=== PATIENT | female | born 1950 | race Caucasian/White ===

== ENCOUNTER 2019-03-10 14:39 | Inpatient (IN) | payer OTHER, MEDICARE, MEDICAID ==
[~2019-03-10] VITALS: Ht 162.6 cm; Wt 93.7 kg
[2019-03-10] MEDS ORDERED: METO50 PO (15:17)
[2019-03-10] MEDS ORDERED: ATOR40TA28 PO (15:17)
[2019-03-10] MEDS ORDERED: LEVO25TA9 PO (15:17)
[2019-03-10] MEDS ORDERED: LORA-999 PO (15:17)
[2019-03-10] MEDS ORDERED: LURA40 PO (15:17)
[2019-03-10] MEDS ORDERED: VENL-53 PO (15:17)
[2019-03-10] MEDS ORDERED: AMLO10TA7 PO (15:18)
[2019-03-10] MEDS ORDERED: CEPH500 PO (15:18)
[2019-03-10] MEDS ORDERED: DEXTROSE 50%-WATER 25 GM/50 ML SYRINGE IVP ONE (15:30)
[2019-03-10] MEDS ORDERED: INSULIN REGULAR, HUMAN 100 UNITS/ML IVP ONE (15:30)
[2019-03-10] MEDS ORDERED: ONDANSETRON HCL 4 MG/2 ML VIAL IVP ONE (15:30)
[2019-03-10] MEDS ORDERED: GLUCAGON,HUMAN RECOMBINANT 1 MG VIAL IVP ONE (15:30)
[2019-03-10 15:59] LABS: BASOPHILS % (AUTO) 0.9 % (0.0-2.0); EOSINOPHILS % (AUTO) 0.4 % (1.0-6.0); HEMATOCRIT 35.2 % (36-46); HEMOGLOBIN 11.5 g/dL (12.0-16.0); LYMPHOCYTES # (AUTO) 0.9 K/uL (1.0-4.8); LYMPHOCYTES % (AUTO) 6.6 % (22.0-44.0); MEAN CORPUSCULAR HEMOGLOBIN 26.6 pg (26.0-34.0); MEAN CORPUSCULAR HGB CONC 32.6 G/dL (31.0-37.0); MEAN CORPUSCULAR VOLUME 82 fL (80-100); MONOCYTES # (AUTO) 0.2 K/uL (0.1-1.0); MONOCYTES % (AUTO) 1.4 % (2.0-9.0); NEUTROPHILS # (AUTO) 12.7 K/uL (1.8-7.7); PLATELET COUNT (AUTO) 188 K/uL (150-450); RED BLOOD CELL COUNT(AUTO) 4.32 MIL/uL (4.00-5.20); RED CELL DISTRIBUTION WIDTH 14.7 % (11.5-14.5)
[2019-03-10 16:01] LABS: NEUTROPHILS % (AUTO) 90.7 % (40.0-70.0)
[2019-03-10 16:11] LABS: ANION GAP 8 mmol/L (8-16); CALCIUM, TOTAL 8.7 mg/dL (8.8-10.5); CARBON DIOXIDE 25 mmol/L (22-29); CHLORIDE 102 mmol/L (98-107); CREATININE 2.26 mg/dL (0.60-1.30); GLOMERULAR FILTR. RATE CALC 22 mL/min (>60); GLUCOSE,RANDOM 364 mg/dL (70-110); SODIUM SERUM 135 mmol/L (136-145); UREA NITROGEN, BLOOD 20 mg/dL (7-18)
[2019-03-10 16:25] LABS: ALANINE AMINOTRANSFERASE 18 U/L (12-78); ALBUMIN 2.9 g/dL (3.4-5.0); ALKALINE PHOSPHATASE 101 U/L (46-116); ASPARTATE AMINOTRANSFERASE 15 U/L (15-37); BILIRUBIN,TOTAL 0.3 mg/dL (0.1-1.0); CREATINE KINASE, TOTAL ONLY 33 U/L (26-192); FREE T4 (FREE THYROXINE) 0.94 ng/dL (0.76-1.46); LIPASE 176 U/L (73-393); THYROID STIMULATING HORMONE 1.23 uIU/mL (0.36-3.74); TOTAL PROTEIN, SERUM 6.2 g/dL (6.4-8.2)
[2019-03-10 16:44] LABS: SALICYLATE 2.1 mg/dL (2.8-20.0)
[2019-03-10 17:05] LABS: LACTIC ACID 2.5 mmol/L (0.4-2.0)
[2019-03-10] MEDS ORDERED: SODIUM CHLORIDE 0.9% 1,000 ML IV ONE ×3 (17:13→19:00)
[2019-03-10 18:45] LABS: AMPHET/METH SCREEN,URINE NEGATIVE (NEGATIVE); BARBITURATE SCREEN, URINE NEGATIVE (NEGATIVE); BENZODIAZEPINES SCREEN,URINE NEGATIVE (NEGATIVE); CANNABINOID SCREEN,URINE NEGATIVE (NEGATIVE); COCAINE SCREEN,URINE NEGATIVE (NEGATIVE); METHADONE SCREEN, URINE NEGATIVE (NEGATIVE); OPIATE SCREEN,URINE NEGATIVE (NEGATIVE)
[2019-03-10] MEDS ORDERED: ONDANSETRON HCL 4 MG/2 ML VIAL IVP PRN (18:45)
[2019-03-10] MEDS ORDERED: ACETAMINOPHEN 325 MG TABLET PO PRN ×2 (18:45)
[2019-03-10] MEDS ORDERED: CefTRIAXone 1 GM/DEXTROSE 50 ML IV ONE (18:45)
[2019-03-10 18:48] LABS: PHENCYCLIDINE SCREEN,URINE NEGATIVE (NEGATIVE)
[2019-03-10] MEDS ORDERED: MAGNESIUM SULFATE 2 GM/WATER 50 ML IV ONE (19:00)
[2019-03-10] MEDS ORDERED: DEXTROSE 50%-WATER 25 GM/50 ML SYRINGE IVP PRN (19:15)
[2019-03-10 20:35] VITALS: BP 149/72
[2019-03-10] MEDS: DOCUSATE SODIUM 100 MG CAPSULE PO SCH (21:23)
[2019-03-10] MEDS: HEPARIN SODIUM,PORCINE 5,000 UNITS/ML VIAL SQ SCH (21:23)
[2019-03-10] MEDS: INSULIN LISPRO 100 UNITS/ML SQ PRN (21:27)
[2019-03-10 21:59] LABS: GLUCOMETER DEV NAME(LOC) 5S.1; GLUCOSE,POINT OF CARE 449 MG/DL (70-110)
[2019-03-10 22:04] LABS: ACETAMINOPHEN < 2 mcg/mL (10-30)
[2019-03-10] MEDS ORDERED: INSULIN GLARGINE,HUM.REC.ANLOG 100 UNITS/ML SQ SCH (22:45)
[2019-03-10 23:27] VITALS: BP 130/61
[2019-03-11 05:14] VITALS: BP 134/60
[2019-03-11] MEDS: INSULIN LISPRO 100 UNITS/ML SQ PRN ×2 (06:28→11:52)
[2019-03-11 06:54] LABS: GLUCOMETER DEV NAME(LOC) 5S.1; GLUCOSE,POINT OF CARE 229 MG/DL (70-110)
[2019-03-11] MEDS: HEPARIN SODIUM,PORCINE 5,000 UNITS/ML VIAL SQ SCH (08:03)
[2019-03-11] MEDS: DOCUSATE SODIUM 100 MG CAPSULE PO SCH (08:03)
[2019-03-11 08:49] VITALS: BP 125/68
[2019-03-11] MEDS ORDERED: FAMOTIDINE 20 MG TABLET PO SCH (09:00)
[2019-03-11] MEDS ORDERED: SODIUM CHLORIDE 0.9% 1,000 ML IV ONE (09:00)
[2019-03-11] MEDS ORDERED: ASPIRIN 81 MG CHEWABLE TABLET PO SCH (09:15)
[2019-03-11 10:28] LABS: BASOPHILS % (AUTO) 0.7 % (0.0-2.0); EOSINOPHILS % (AUTO) 1.4 % (1.0-6.0); HEMATOCRIT 36.2 % (36-46); HEMOGLOBIN 11.7 g/dL (12.0-16.0); LYMPHOCYTES # (AUTO) 2.3 K/uL (1.0-4.8); LYMPHOCYTES % (AUTO) 17.4 % (22.0-44.0); MEAN CORPUSCULAR HEMOGLOBIN 26.6 pg (26.0-34.0); MEAN CORPUSCULAR HGB CONC 32.4 G/dL (31.0-37.0); MEAN CORPUSCULAR VOLUME 82 fL (80-100); MONOCYTES # (AUTO) 0.7 K/uL (0.1-1.0); MONOCYTES % (AUTO) 5.3 % (2.0-9.0); NEUTROPHILS # (AUTO) 10.1 K/uL (1.8-7.7); NEUTROPHILS % (AUTO) 75.2 % (40.0-70.0); PLATELET COUNT (AUTO) 172 K/uL (150-450); RED BLOOD CELL COUNT(AUTO) 4.41 MIL/uL (4.00-5.20); RED CELL DISTRIBUTION WIDTH 14.6 % (11.5-14.5)
[2019-03-11 10:41] LABS: CALCIUM, TOTAL 8.7 mg/dL (8.8-10.5); CREATININE 2.04 mg/dL (0.60-1.30); MAGNESIUM 1.9 mg/dL (1.80-2.40); PHOSPHORUS 2.5 mg/dL (2.5-4.9); POTASSIUM 4.1 mmol/L (3.5-5.1)
[2019-03-11 12:13] LABS: GLUCOMETER DEV NAME(LOC) 5S.1; GLUCOSE,POINT OF CARE 263 MG/DL (70-110)
[2019-03-11 12:29] VITALS: BP 128/57
[2019-03-11] MEDS ORDERED: LORazepam 0.5 MG TABLET PO PRN (14:45)
[2019-03-11] MEDS ORDERED: VENLAFAXINE HCL 150 MG ER CAPSULE PO SCH (14:45)
[2019-03-11 16:00] VITALS: BP 149/71
[2019-03-11] MEDS ORDERED: LURASIDONE HCL 40 MG TABLET PO SCH (21:00)
[2019-03-11] MEDS ORDERED: INSULIN GLARGINE,HUM.REC.ANLOG 100 UNITS/ML SQ SCH (21:00)
== END 2019-03-11 18:05 | disposition short-term general hospital (02) | DRG 918 ==
LOC: EMS 14:42 → 5N 19:01
PROVIDERS: ADMIT Internal Medicine; ATTEND Internal Medicine
DX: T36.8X2A Poisoning by other systemic antibiotics, intentional self-harm, initial encounter (principal); R45.851 Suicidal ideations; E87.2 Acidosis; T36.1X2A Poisoning by cephalosporins and other beta-lactam antibiotics, intentional self-harm, initial encounter; F31.9 Bipolar disorder, unspecified; E78.00 Pure hypercholesterolemia, unspecified; F17.210 Nicotine dependence, cigarettes, uncomplicated; D72.829 Elevated white blood cell count, unspecified; E66.01 Morbid (severe) obesity due to excess calories; E11.22 Type 2 diabetes mellitus with diabetic chronic kidney disease; N18.9 Chronic kidney disease, unspecified; I12.9 Hypertensive chronic kidney disease with stage 1 through stage 4 chronic kidney disease, or unspecified chronic kidney disease; D64.9 Anemia, unspecified; E78.5 Hyperlipidemia, unspecified; E03.9 Hypothyroidism, unspecified; Y92.89 Other specified places as the place of occurrence of the external cause; Z87.01 Personal history of pneumonia (recurrent); Z68.35 Body mass index [BMI] 35.0-35.9, adult; Z79.899 Other long term (current) drug therapy; Z81.8 Family history of other mental and behavioral disorders
CPT/HCPCS: 83605; 83735; 84100; 84439; 84443; 93005; 96374; 96375; 99291; G0480; G0481; J0696; J1610; J1644; J1815; J2405; J3475; J7030

== ENCOUNTER 2019-10-25 10:47 | Emergency (ER) | payer MEDICARE, OTHER ==
[~2019-10-25] VITALS: Ht 162.6 cm; Wt 81.8 kg
[~2019-10-25 10:47] MED LIST: AMLO10TA7 PO; INSLAN SQ; INSU100V SQ; LEVO-72 PO; LEVO25TA9 PO; LORA-999 PO; METO50 PO; TRAM50TA4 PO; TRAZ-257 PO; VENL-53 PO
[2019-10-25 13:17] LABS: HEMATOCRIT 36.2 % (36-46); HEMOGLOBIN 12.3 g/dL (12.0-16.0); RED BLOOD CELL COUNT(AUTO) 4.57 MIL/uL (4.00-5.20)
[2019-10-25 13:18] LABS: EOSINOPHILS % (AUTO) 1.5 % (1.0-6.0); LYMPHOCYTES # (AUTO) 1.6 K/uL (1.0-4.8); LYMPHOCYTES % (AUTO) 13.9 % (22.0-44.0); MEAN CORPUSCULAR HEMOGLOBIN 26.9 pg (26.0-34.0); MEAN CORPUSCULAR HGB CONC 33.9 G/dL (31.0-37.0); MEAN CORPUSCULAR VOLUME 79 fL (80-100); MONOCYTES # (AUTO) 0.3 K/uL (0.1-1.0); MONOCYTES % (AUTO) 2.9 % (2.0-9.0); NEUTROPHILS # (AUTO) 9.1 K/uL (1.8-7.7); NEUTROPHILS % (AUTO) 80.7 % (40.0-70.0); PLATELET COUNT (AUTO) 152 K/uL (150-450); RED CELL DISTRIBUTION WIDTH 14.6 % (11.5-14.5)
[2019-10-25 13:28] LABS: CALCIUM, TOTAL 10.1 mg/dL (8.8-10.5); CREATININE 2.66 mg/dL (0.60-1.30); POTASSIUM 4.6 mmol/L (3.5-5.1)
[2019-10-25] MEDS ORDERED: MORPHINE SULFATE 2 MG/ML SYRINGE IVP ONE (13:45)
[2019-10-25 13:52] LABS: BILIRUBIN,TOTAL 0.4 mg/dL (0.1-1.0); TOTAL PROTEIN, SERUM 7.9 g/dL (6.4-8.2)
[2019-10-25 16:15] VITALS: BP 169/97
[2019-10-25 21:27] LABS: APPEARANCE,URINE CLOUDY (CLEAR); BILIRUBIN,URINE NEGATIVE (NEGATIVE); GLUCOSE, URINE (UA) NEGATIVE (NEGATIVE); KETONES,URINE NEGATIVE (NEGATIVE); LEUKOCYTE ESTERASE ,URINE NEGATIVE (NEGATIVE); NITRATE,URINE NEGATIVE (NEGATIVE); OCCULT BLOOD,URINE SMALL (NEGATIVE); PH,URINE 5.5 (5.0-8.0); PROTEIN,URINE SEE CONFIRM (NEGATIVE); UROBILINOGEN,URINE 0.2 mg/dL (<=1.0)
[2019-10-25 21:58] LABS: SULFOSALICYLIC ACID,URINE 4+ (Negative)
[2019-10-25 21:59] LABS: BACTERIA,URINE Moderate /HPF (None Seen); SQUAMOUS EPITHELIAL CELL,UR Few /LPF (None Seen); WBC,URINE 0-2 /HPF (0-5)
[2019-10-26] MEDS ORDERED: METO-391 PO (00:50)
== END 2019-10-25 16:59 | disposition home or self-care (01) ==
LOC: EMS 10:50
DX: J18.9 Pneumonia, unspecified organism (principal); N18.6 End stage renal disease; E11.9 Type 2 diabetes mellitus without complications; E78.00 Pure hypercholesterolemia, unspecified; F17.210 Nicotine dependence, cigarettes, uncomplicated; Z88.0 Allergy status to penicillin; Z88.8 Allergy status to other drugs, medicaments and biological substances; Z79.4 Long term (current) use of insulin; Z79.899 Other long term (current) drug therapy
CPT/HCPCS: 36415; 71045; 80053; 81001; 82550; 83880; 84484; 85025; 85610; 85730; 87086; 93005; 96374; 99285; J2270

== ENCOUNTER 2020-08-09 10:27 | Emergency (ER) | payer MEDICARE, OTHER ==
[~2020-08-09] VITALS: Ht 162.6 cm; Wt 71.8 kg
[~2020-08-09 10:27] MED LIST changes: +AMLO-258 PO; -AMLO10TA7 PO; -LEVO-72 PO; +METO-391 PO; -METO50 PO; +PERCT PO
[2020-08-09] MEDS ORDERED: SODIUM CHLORIDE 0.9% 1,000 ML IV ONE ×2 (11:00)
[2020-08-09] MEDS ORDERED: FentaNYL CITRATE PF 100 MCG/2 ML VIAL IVP ONE ×2 (11:30→12:45)
[2020-08-09] MEDS ORDERED: IOVERSOL 350 MG/ML 100 ML VIAL ONE (11:57)
[2020-08-09] MEDS ORDERED: SODIUM CHLORIDE 0.9% 0 ML ONE (11:57)
[2020-08-09 12:17] LABS: BASOPHILS % (AUTO) 0.5 % (0.0-2.0); EOSINOPHILS % (AUTO) 1.6 % (1.0-6.0); HEMATOCRIT 26.7 % (36-46); HEMOGLOBIN 8.9 g/dL (12.0-16.0); LYMPHOCYTES # (AUTO) 1.6 K/uL (1.0-4.8); LYMPHOCYTES % (AUTO) 13.1 % (22.0-44.0); MEAN CORPUSCULAR HEMOGLOBIN 28.4 pg (26.0-34.0); MEAN CORPUSCULAR HGB CONC 33.4 G/dL (31.0-37.0); MEAN CORPUSCULAR VOLUME 85 fL (80-100); MONOCYTES # (AUTO) 0.7 K/uL (0.1-1.0); MONOCYTES % (AUTO) 5.4 % (2.0-9.0); NEUTROPHILS # (AUTO) 9.6 K/uL (1.8-7.7); NEUTROPHILS % (AUTO) 79.4 % (40.0-70.0); PLATELET COUNT (AUTO) 144 K/uL (150-450); RED BLOOD CELL COUNT(AUTO) 3.15 MIL/uL (4.00-5.20); RED CELL DISTRIBUTION WIDTH 13.6 % (11.5-14.5)
[2020-08-09 12:25] LABS: CALCIUM, TOTAL 8.9 mg/dL (8.8-10.5); CREATININE 6.79 mg/dL (0.60-1.30); POTASSIUM 3.4 mmol/L (3.5-5.1)
[2020-08-09 12:31] LABS: ALBUMIN 3.2 g/dL (3.4-5.0); BILIRUBIN,TOTAL 0.3 mg/dL (0.1-1.0); TOTAL PROTEIN, SERUM 6.6 g/dL (6.4-8.2)
[2020-08-09 12:39] LABS: LACTIC ACID 0.5 mmol/L (0.4-2.0)
[2020-08-09 14:15] VITALS: BP 112/60
[2020-08-12] MEDS ORDERED: SERT-158 PO (05:02)
[2020-08-12] MEDS ORDERED: FOLI0.8T43 PO (05:02)
[2020-08-12] MEDS ORDERED: INSU100I26 SQ (05:02)
[2020-08-12] MEDS ORDERED: NIFE-79 PO (05:02)
[2020-08-12] MEDS ORDERED: QUET25TA PO (05:02)
[2020-08-12] MEDS ORDERED: HYDR50TA36 PO (05:02)
[2020-08-12] MEDS ORDERED: ONDA-104 PO (05:02)
[2020-08-12] MEDS ORDERED: CLON1PAT14 TD (05:02)
[2020-08-12] MEDS ORDERED: SENN8.6T20 PO (05:02)
[2020-08-12] MEDS ORDERED: APIX2.5T PO (05:02)
[2020-08-12] MEDS ORDERED: FOLI-130 PO (05:02)
[2020-08-12] MEDS ORDERED: ERGO500054 PO (05:02)
[2020-08-12] MEDS ORDERED: FAMO20 PO (05:02)
[2020-08-12] MEDS ORDERED: CLON0.2T PO (05:02)
[2020-08-12] MEDS ORDERED: DULA0.75 SQ (05:02)
[2020-08-12] MEDS ORDERED: CALC500T7 PO (05:02)
[2020-08-12] MEDS ORDERED: INSU100V42 SQ (05:02)
[2020-08-12] MEDS ORDERED: AMIN30LI28 PO (05:02)
[2020-08-12] MEDS ORDERED: CARV25 PO (05:02)
[2020-08-12] MEDS ORDERED: SODI650T33 PO (05:02)
== END 2020-08-09 15:34 | disposition home or self-care (01) ==
LOC: EMS 10:27
DX: M16.12 Unilateral primary osteoarthritis, left hip (principal); I12.0 Hypertensive chronic kidney disease with stage 5 chronic kidney disease or end stage renal disease; E11.22 Type 2 diabetes mellitus with diabetic chronic kidney disease; N18.6 End stage renal disease; E78.00 Pure hypercholesterolemia, unspecified; F31.9 Bipolar disorder, unspecified; F17.210 Nicotine dependence, cigarettes, uncomplicated; Z99.2 Dependence on renal dialysis; Z88.0 Allergy status to penicillin; Z88.8 Allergy status to other drugs, medicaments and biological substances; Z79.899 Other long term (current) drug therapy
CPT/HCPCS: 36415; 36573; 73503; 74176; 80053; 83605; 85025; 96361; 96374; 96376; 99285; J3010; J7030; J7050